=== PATIENT | female | born 1990 | race Caucasian/White ===

== ENCOUNTER 2021-11-04 13:34 | Inpatient (IN) | payer BC ==
[2021-11-04] VITALS (15 sets, daily range): BP systolic 95–159; BP diastolic 0–89
[2021-11-04] MEDS ORDERED: OXYTOCIN PRE-MIX DRIP 500 ML IV ONE ×2 (13:40→14:27)
[2021-11-04] MEDS: OXYTOCIN PRE-MIX DRIP 500 ML IV SCH ×2 (13:54→14:30)
[2021-11-04] MEDS ORDERED: LIDOCAINE/EPI 2% 1:200,00 (XYLOCAINE) 10 ML VIAL ONE (13:54)
[2021-11-04] MEDS ORDERED: TETANUS,DIPTH,PERTUSS P/F (BOOSTRIX) 0.5 ML VIAL IM ONE (14:45)
[2021-11-04] MEDS ORDERED: BENZOCAINE/MENTHOL (DERMOPLAST) 56 ML CAN TP PRN (14:45)
[2021-11-04] MEDS ORDERED: WITCH HAZEL(TUCKS) 40 EA JAR TOP PRN (14:45)
[2021-11-04] MEDS ORDERED: MEASLES,MUMPS,RUBELLA 1 EA INJ SQ ONE (14:45)
[2021-11-04 14:58] LABS: BASOPHILS % (AUTO) 0 % (0-10); EOSINOPHILS % (AUTO) 0 % (0-10); HEMATOCRIT 37 % (35-52); HEMOGLOBIN 12.2 g/dL (11.5-16.0); LYMPHOCYTES # (AUTO) 2.8 10^3/uL (1.0-4.0); LYMPHOCYTES % (AUTO) 19 % (12-44); MEAN CORPUSCULAR HEMOGLOBIN 33 pg (25-34); MEAN CORPUSCULAR HGB CONC 33 g/dL (32-36); MEAN CORPUSCULAR VOLUME 99 fL (80-99); MEAN PLATELET VOLUME 9.3 fL (9.0-12.2); MONOCYTES # (AUTO) 1.2 10^3/uL (0.0-1.0); MONOCYTES % (AUTO) 8 % (0-12); NEUTROPHILS # (AUTO) 11.1 10^3/uL (1.8-7.8); NEUTROPHILS % (AUTO) 73 % (42-75); PLATELET COUNT 362 10^3/uL (130-400); WHITE BLOOD COUNT 15.2 10^3/uL (4.3-11.0)
--- NOTE | 2021-11-04 15:09 | OB Labor & Delivery Record ---
Vag Delivery Note Vag Delivery Note Date of Delivery: 11/04/21 Preoperative Diagnosis: Corine Ge is a 31yo /Para/ ,Gestational Age (wks) who presented in spontaneous labor at complete dilation Postoperative Diagnosis: Same Surgeon: NICANOR HERNANDEZ Anesthesia: None Delivery Type: Spontaneous vaginal delivery Findings: Viable female , apgars 9,9 weight 5#15 Lacerations: 1st degree laceration Intact placenta with 3 vessel cord. No nuchal cord, body cord or shoulder dystocia Cytotec 1000 mcg placed for hemorrhage prophylaxis Estimated Blood Loss: 100 ml Complications: None Condition: Stable Description of Procedure: The patient is a 31 year old female at 37 wga who presented in spontaneous labor at complete dilation. She was admitted and informed consent was obtained. Her labor course was unremarkable. She was brought to L&D and began to push once transferred to the L&D bed. She was then set up for delivery. The 's head was delivered atraumatically in the LOP position. The shoulders and remainder of the infant's body were then delivered without difficulty. Upon delivery, the head was held below the level of the perineum and the mouth and nares were bulb suctioned. The cord was doubly clamped and cut and the was handed off to the pediatric staff. An intact placenta with 3-vessel cord delivered via [place] and there was found to be minimal bleeding. Vigorous fundal massage was performed and the fundus was found to be firm. IV oxytocin was given. Examination of the vagina and perineum revealed a 1st degree laceration repaired in the usual fashion with 2-0 vicryl suture following local anesthetic administration to the site. Following the repair, sponge, instrument and needle counts were correct. Mom and baby were both in stable condition in the labor suite. 1000mcg of cytotec was placed rectally for hemorrhage prophylaxis. Vitals - Labs Labs Laboratory Tests 11/04/21 13:37: White Blood Count 15.2H, Red Blood Count 3.73L, Hemoglobin 12.2, Hematocrit 37, Mean Corpuscular Volume 99, Mean Corpuscular Hemoglobin 33, Mean Corpuscular Hemoglobin Concent 33, Red Cell Distribution Width 13.4, Platelet Count 362, Mean Platelet Volume 9.3, Immature Granulocyte % (Auto) 0, Neutrophils (%) (Auto) 73, Lymphocytes (%) (Auto) 19, Monocytes (%) (Auto) 8, Eosinophils (%) (Auto) 0, Basophils (%) (Auto) 0, Neutrophils # (Auto) 11.1H, Lymphocytes # (Auto) 2.8, Monocytes # (Auto) 1.2H, Eosinophils # (Auto) 0.0, Basophils # (Auto) 0.0, Immature Granulocyte # (Auto) 0.1 NICANOR HERNANDEZ MD November 04, 2021 15:09
--- NOTE | 2021-11-04 15:12 | History & Physical-OB ---
OB - Chief Complaint & HPI Date/Time Date of Admission: Date of Admission: November 04, 2021 at 13:34 Date seen by a Provider: November 04, 2021 Time Seen by a Provider: 14:00 Chief Complaint/History OB-Reason for Admission/Chief: Onset of Labor Hx : 3 Hx Para: 1011 Gestational Age in Weeks: 37 Gestational Age in Days: 1 Allergies and Home Medications Allergies Uncoded Allergies: sulfa (Allergy, Unknown, Hives, 11/04/21) since childhood Patient Home Medication List Home Medication List Reviewed: Yes OB - History Hx of Present Care: Yes Ultrasounds: Other ( labs not currently available) Obstetrical Complications: Gestational Diabetes Medical Complications: None Patient Past Medical History None OB - Admission Exam Labs Laboratory Tests Test 11/04/21 13:37 Range/Units White Blood Count 15.2 H 4.3-11.0 10^3/uL Red Blood Count 3.73 L 3.80-5.11 10^6/uL Hemoglobin 12.2 11.5-16.0 g/dL Hematocrit 37 35-52 % Mean Corpuscular Volume 99 80-99 fL Mean Corpuscular Hemoglobin 33 25-34 pg Mean Corpuscular Hemoglobin Concent 33 32-36 g/dL Red Cell Distribution Width 13.4 10.0-14.5 % Platelet Count 362 130-400 10^3/uL Mean Platelet Volume 9.3 9.0-12.2 fL Immature Granulocyte % (Auto) 0 % Neutrophils (%) (Auto) 73 42-75 % Lymphocytes (%) (Auto) 19 12-44 % Monocytes (%) (Auto) 8 0-12 % Eosinophils (%) (Auto) 0 0-10 % Basophils (%) (Auto) 0 0-10 % Neutrophils # (Auto) 11.1 H 1.8-7.8 10^3/uL Lymphocytes # (Auto) 2.8 1.0-4.0 10^3/uL Monocytes # (Auto) 1.2 H 0.0-1.0 10^3/uL Eosinophils # (Auto) 0.0 0.0-0.3 10^3/uL Basophils # (Auto) 0.0 0.0-0.1 10^3/uL Immature Granulocyte # (Auto) 0.1 0.0-0.1 10^3/uL OB - Assessment/Plan/Diagnosis Assessment Assessment: active labor Admission Dx Labor, 37 weeks gestation, diet controlled gestational diabetes Admission Status: Inpatient Order (span 2 midnights) Reason for Inpatient Admission: Active labor Plan Plan: Expectant Management Other Plan Anticipate vaginal delivery. NICANOR HERNANDEZ MD November 04, 2021 15:12
--- NOTE | 2021-11-04 15:17 | Discharge Inst-Simple/Standard ---
Discharge Inst-Standard Reconcile Patient Problems Problems Reviewed?: Yes Discharge Medications New, Converted or Re-Newed RX: Transmitted to Pharmacy Patient Instructions/Follow Up Plan of Care/Instructions/FU: Follow-up in 6 weeks for examination Activity as Tolerated: Yes Discharge Diet: No Restrictions NICANOR HERNANDEZ MD November 04, 2021 15:17
[2021-11-04 15:27] LABS: LYMPHOCYTES % (MANUAL) 16 %; MONOCYTES % (MANUAL) 5 %; NEUTROPHILS % (MANUAL) 79 %
[2021-11-04 15:28] LABS: BURR CELLS MODERATE; ELLIPT/OVALOCYTES SLIGHT
[2021-11-04] MEDS: DOCUSATE SODIUM 100 MG (COLACE) CAP PO SCH (21:28)
[2021-11-04] MEDS ORDERED: CATHETER FLUSH 10 ML SYR IV SCH (22:00)
[2021-11-05 01:30] VITALS: BP 105/59
[2021-11-05] MEDS ORDERED: IBUP-1773 PO (05:54)
[2021-11-05] MEDS ORDERED: DOCU-143 PO (05:54)
--- NOTE | 2021-11-05 05:58 | Postpartum Progress Note ---
Note Note Day #1 Subjective: Patient is without complaints. Ambulating, voiding. Tolerating a regular diet without nausea or vomiting. Normal lochia. Pain is well controlled with oral pain medications. . Passing flatus and having bowel movements. Objective: VS - Last 72 Hours, by Label 11/04/21 11/04/21 11/04/21 11/04/21 13:37 13:45 13:50 13:56 Temp 37.1 37.1 Pulse 115 115 96 Resp 20 18 18 B/P (MAP) 159/89 (112) 136/62 (86) 125/59 (81) Pulse Ox 96 96 O2 Delivery Room Air Room Air Room Air 11/04/21 11/04/21 11/04/21 11/04/21 14:00 14:05 14:21 14:36 Pulse 93 91 93 96 Resp 18 18 18 18 B/P (MAP) 109/54 (72) 95/54 (68) 121/72 (88) 120/68 (85) O2 Delivery Room Air Room Air Room Air Room Air 11/04/21 11/04/21 11/04/21 11/04/21 14:51 15:06 15:21 15:36 Pulse 83 82 85 88 Resp 18 18 18 18 B/P (MAP) 122/60 (80) 130/58 (82) 126/64 (84) 135/74 (94) O2 Delivery Room Air Room Air Room Air Room Air 11/04/21 11/04/21 11/04/21 11/05/21 15:51 16:06 21:29 01:30 Temp 36.6 36.7 Pulse 89 76 80 70 Resp 18 18 18 18 B/P (MAP) 132/71 (91) 122/67 (85) 119/0 (39) 105/59 (74) Pulse Ox 97 96 O2 Delivery Room Air Room Air Room Air Room Air Laboratory Tests Test 11/04/21 13:37 Range/Units White Blood Count 15.2 H 4.3-11.0 10^3/uL Red Blood Count 3.73 L 3.80-5.11 10^6/uL Hemoglobin 12.2 11.5-16.0 g/dL Hematocrit 37 35-52 % Mean Corpuscular Volume 99 80-99 fL Mean Corpuscular Hemoglobin 33 25-34 pg Mean Corpuscular Hemoglobin Concent 33 32-36 g/dL Red Cell Distribution Width 13.4 10.0-14.5 % Platelet Count 362 130-400 10^3/uL Mean Platelet Volume 9.3 9.0-12.2 fL Immature Granulocyte % (Auto) 0 % Neutrophils (%) (Auto) 73 42-75 % Lymphocytes (%) (Auto) 19 12-44 % Monocytes (%) (Auto) 8 0-12 % Eosinophils (%) (Auto) 0 0-10 % Basophils (%) (Auto) 0 0-10 % Neutrophils # (Auto) 11.1 H 1.8-7.8 10^3/uL Lymphocytes # (Auto) 2.8 1.0-4.0 10^3/uL Monocytes # (Auto) 1.2 H 0.0-1.0 10^3/uL Eosinophils # (Auto) 0.0 0.0-0.3 10^3/uL Basophils # (Auto) 0.0 0.0-0.1 10^3/uL Immature Granulocyte # (Auto) 0.1 0.0-0.1 10^3/uL Neutrophils % (Manual) 79 % Lymphocytes % (Manual) 16 % Monocytes % (Manual) 5 % [place] Cells MODERATE Elliptocytes SLIGHT Blood Morphology Comment NA Physical Exam: General - Alert and oriented, no apparent distress Abdomen - Soft, appropriately tender to palpation, non-distended, fundus firm at umbilicus Extremities - no edema, negative Suzy's bilaterally Assessment: Post- day # 1, status post vaginal delivery. Patient precipitously delivered. Recovering well, hemodynamically stable Plan: Routine care. Viable female . Encourage breast feeding. VTE ppx: Encourage ambulation. SCDs when in bed. Ferrous sulfate supplementation. Plan for discharge today. Vitals - Labs Vital Signs - I&O Vital Signs Date Time Temp Pulse Resp B/P (MAP) Pulse Ox O2 Delivery O2 Flow Rate FiO2 11/05/21 01:30 36.7 70 18 105/59 (74) 96 Room Air 11/04/21 21:29 36.6 80 18 119/0 (39) 97 Room Air 11/04/21 16:06 76 18 122/67 (85) Room Air 11/04/21 15:51 89 18 132/71 (91) Room Air 11/04/21 15:36 88 18 135/74 (94) Room Air 11/04/21 15:21 85 18 126/64 (84) Room Air 11/04/21 15:06 82 18 130/58 (82) Room Air 11/04/21 14:51 83 18 122/60 (80) Room Air 11/04/21 14:36 96 18 120/68 (85) Room Air 11/04/21 14:21 93 18 121/72 (88) Room Air 11/04/21 14:05 91 18 95/54 (68) Room Air 11/04/21 14:00 93 18 109/54 (72) Room Air 11/04/21 13:56 96 18 125/59 (81) Room Air 11/04/21 13:50 136/62 (86) 11/04/21 13:45 37.1 115 18 159/89 (112) 96 Room Air 11/04/21 13:37 37.1 115 20 96 Room Air I & O 11/05/21 07:00 Intake Total 1000 ml Balance 1000 ml Labs Laboratory Tests 11/04/21 13:37: White Blood Count 15.2H, Red Blood Count 3.73L, Hemoglobin 12.2, Hematocrit 37, Mean Corpuscular Volume 99, Mean Corpuscular Hemoglobin 33, Mean Corpuscular Hemoglobin Concent 33, Red Cell Distribution Width 13.4, Platelet Count 362, Mean Platelet Volume 9.3, Immature Granulocyte % (Auto) 0, Neutrophils (%) (Auto) 73, Lymphocytes (%) (Auto) 19, Monocytes (%) (Auto) 8, Eosinophils (%) (Auto) 0, Basophils (%) (Auto) 0, Neutrophils # (Auto) 11.1H, Lymphocytes # (Auto) 2.8, Monocytes # (Auto) 1.2H, Eosinophils # (Auto) 0.0, Basophils # (Auto) 0.0, Immature Granulocyte # (Auto) 0.1, Neutrophils % (Manual) 79, Lymphocytes % (Manual) 16, Monocytes % (Manual) 5, [place] Cells MODERATE, Viola ptocytes SLIGHT, Blood Morphology Comment NA NICANOR HERNANDEZ MD November 05, 2021 05:58
[2021-11-05 06:00] VITALS: BP 103/61
[2021-11-05 06:17] LABS: BASOPHILS % (AUTO) 0 % (0-10); EOSINOPHILS % (AUTO) 0 % (0-10); HEMATOCRIT 36 % (35-52); LYMPHOCYTES # (AUTO) 2.5 10^3/uL (1.0-4.0); LYMPHOCYTES % (AUTO) 18 % (12-44); MEAN CORPUSCULAR HEMOGLOBIN 32 pg (25-34); MEAN CORPUSCULAR HGB CONC 33 g/dL (32-36); MEAN CORPUSCULAR VOLUME 96 fL (80-99); MONOCYTES # (AUTO) 1.2 10^3/uL (0.0-1.0); MONOCYTES % (AUTO) 9 % (0-12); NEUTROPHILS % (AUTO) 73 % (42-75); PLATELET COUNT 311 10^3/uL (130-400); WHITE BLOOD COUNT 13.8 10^3/uL (4.3-11.0)
[2021-11-05] MEDS ORDERED: PRENATAL VITAMIN 1 EA TAB PO SCH (07:00)
[2021-11-05] MEDS ORDERED: DOCUSATE CALCIUM 240 MG (SURFAK) CAP PO SCH (09:00)
[2021-11-05 09:24] VITALS: BP 104/58
[2021-11-05] MEDS: DOCUSATE SODIUM 100 MG (COLACE) CAP PO SCH (09:24)
== END 2021-11-05 14:00 | disposition home or self-care (01) | DRG 807 ==
LOC: LDRP 13:34
PROVIDERS: ADMIT Obstetrics & Gynecology; ATTEND Obstetrics & Gynecology
PROC: 10E0XZZ Delivery of Products of Conception, External Approach (ICD-10-PCS; principal; 2021-11-04)
PROC: 0HQ9XZZ Repair Perineum Skin, External Approach (ICD-10-PCS; 2021-11-04)
DX: O24.420 Gestational diabetes mellitus in childbirth, diet controlled (principal); Z37.0 Single live birth; Z3A.37 37 weeks gestation of pregnancy; O62.3 Precipitate labor; O70.0 First degree perineal laceration during delivery
CPT/HCPCS: 36415; 85007; 85025; 85027; 86850; 86900; 86901; 99212